=== PATIENT | female | born 1975 | race Caucasian/White ===

== ENCOUNTER 2017-03-01 19:12 | Emergency (ER) | payer SELFPAY ==
[2017-03-01 19:33] VITALS: BP 123/83
[2017-03-01] MEDS ORDERED: Amoxicillin/Clavulanate TAB* 875 MG PO ONE (19:34)
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
== END 2017-03-01 20:00 | disposition home or self-care (01) ==
LOC: UCEAST 19:12
DX: K04.7 Periapical abscess without sinus (principal); K03.81 Cracked tooth
CPT/HCPCS: 99212; A9270-GY; G0463

== ENCOUNTER 2017-03-03 08:47 | Emergency (ER) | payer SELFPAY ==
[2017-03-03 09:28] VITALS: BP 123/78
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
== END 2017-03-03 10:00 | disposition home or self-care (01) ==
LOC: UCEAST 08:47
DX: K04.7 Periapical abscess without sinus (principal)
CPT/HCPCS: 99212; G0463

== ENCOUNTER 2017-07-22 20:45 | Emergency (ER) | payer SELFPAY ==
[2017-07-22 21:04] VITALS: BP 87/53
[2017-07-22] MEDS ORDERED: Ondansetron ODT TAB* 4 MG PO ONE (21:09)
[2017-07-22] MEDS ORDERED: NS 0.9% 1000 ML* 1,000 ML IV SCH (21:15)
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
[2017-07-22] MEDS ORDERED: Acetaminophen TAB* 325 MG PO ONE (23:09)
--- NOTE | 2017-07-24 15:50 | UC ---
Progress - Progress Note Progress Note: CALL PATIENT UCX (-). IF WORSE ER. Re-Evaluation - Re-Evaluation First Eval Re-Evaluation Time: 23:09 - BETTER AFTER 1L NS AND 4MG ZOFRAN Change: Improved
== END 2017-07-22 23:37 | disposition home or self-care (01) ==
LOC: UCEAST 20:45
DX: O21.0 Mild hyperemesis gravidarum (principal); Z3A.09 9 weeks gestation of pregnancy; Z88.8 Allergy status to other drugs, medicaments and biological substances; Z88.5 Allergy status to narcotic agent
CPT/HCPCS: 81003; 87086; 96360; 99212; A9270-GY; G0463

== ENCOUNTER 2017-11-16 14:15 | Emergency (ER) | payer MEDICAID ==
[2017-11-16 14:36] VITALS: BP 108/63
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
== END 2017-11-16 16:30 | disposition home or self-care (01) ==
LOC: UCEAST 14:15
DX: J32.9 Chronic sinusitis, unspecified (principal); Z88.8 Allergy status to other drugs, medicaments and biological substances
CPT/HCPCS: 87502; 99212; G0463

== ENCOUNTER 2018-04-07 17:17 | Emergency (ER) | payer OTHER ==
[2018-04-07] MEDS ORDERED: NS 0.9% 1000 ML* 1,000 ML IV ONE (18:07)
[2018-04-07] MEDS ORDERED: diPHENhydraMINE IV* 50 MG/ML 1 ml VIAL (BENADRYL) IV ONE (18:07)
[2018-04-07] MEDS ORDERED: Ketorolac INJ* 30 MG/ML 1 ML VIAL IV ONE (18:07)
[2018-04-07] MEDS ORDERED: Metoclopramide IV* 5 MG/ML 2 ML VIAL IV ONE (18:07)
[2018-04-07 18:47] LABS: ABS Basophils 0 10^3/ul (0-0.2); ABS Eosinophils 0 10^3/ul (0-0.6); ABS Lymphocytes 0.9 10^3/ul (1.0-4.8); ABS Monocytes 0.2 10^3/ul (0-0.8); ABS Neutrophils 4.9 10^3/ul (1.5-7.7); ABS Nucleated RBC 0 10^3/ul; Eosinophil % 0.5 % (0-6); Hematocrit 38 % (35-47); Hemoglobin 13.1 g/dl (12.0-16.0); Lymphocyte % 15.4 % (25-47); Mean Corpuscular HGB Conc 35 g/dl (31-36); Mean Corpuscular Hemoglobin 34 pg (27-31); Mean Corpuscular Volume 99 fL (80-97); Mean Platelet Volume 7.5 um3 (7.4-10.4); Nucleated Red Blood Cells % 0.1; Platelet Count 203 10^3/ul (150-450); Red Blood Count 3.86 10^6/ul (4.00-5.40); Red Cell Distribution Width 12 % (10.5-15); White Blood Count 6.1 10^3/ul (3.5-10.8)
[2018-04-07 19:11] LABS: EGFR Non-African American 80.6 (>60)
[2018-04-07 19:28] VITALS: BP 122/79
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
== END 2018-04-07 19:28 | disposition home or self-care (01) ==
LOC: ED 17:17
DX: R51 Headache (principal); Z88.8 Allergy status to other drugs, medicaments and biological substances
CPT/HCPCS: 36415; 80053; 82375; 85025; 85652; 96374; 96375; 99282; J1200; J1885; J2765

== ENCOUNTER 2018-05-03 10:35 | Emergency (ER) | payer OTHER ==
[2018-05-03] MEDS ORDERED: NS 0.9% 1000 ML* 2,000 ML IV ONE ×2 (11:14→11:15)
[2018-05-03] MEDS ORDERED: Ondansetron INJ* 2 MG/ML VIAL IV ONE ×2 (11:15→14:35)
[2018-05-03] MEDS ORDERED: Ketorolac INJ* 30 MG/ML 1 ML VIAL IV ONE ×2 (11:15→14:35)
[2018-05-03 11:48] LABS: ABS Basophils 0 10^3/ul (0-0.2); ABS Eosinophils 0.1 10^3/ul (0-0.6); ABS Lymphocytes 0.9 10^3/ul (1.0-4.8); ABS Monocytes 0.3 10^3/ul (0-0.8); ABS Neutrophils 3.7 10^3/ul (1.5-7.7); ABS Nucleated RBC 0 10^3/ul; Eosinophil % 1.8 % (0-6); Hematocrit 41 % (35-47); Hemoglobin 14.1 g/dl (12.0-16.0); Lymphocyte % 18.6 % (25-47); Mean Corpuscular HGB Conc 35 g/dl (31-36); Mean Corpuscular Hemoglobin 34 pg (27-31); Mean Corpuscular Volume 99 fL (80-97); Mean Platelet Volume 7.3 um3 (7.4-10.4); Nucleated Red Blood Cells % 0; Platelet Count 245 10^3/ul (150-450); Red Blood Count 4.12 10^6/ul (4.00-5.40); Red Cell Distribution Width 12 % (10.5-15)
[2018-05-03 11:56] LABS: INR 0.95 (0.77-1.02)
[2018-05-03 11:58] LABS: Urine Appearance Clear; Urine Blood Negative (Negative); Urine Color Yellow; Urine Ketones Negative (Negative); Urine Protein Negative (Negative); Urine Specific Gravity 1.012 (1.010-1.030); Urine Urobilinogen Negative (Negative)
--- NOTE | 2018-05-03 12:05 | RAD ---
INDICATION: Headache. COMPARISON: Comparison is made with a prior CT of the brain from May 10, 2016. TECHNIQUE: Contiguous axial sections of the brain were obtained from the skull base to the vertex without contrast. FINDINGS: The ventricles, cisterns and sulci are within normal limits. There is a focal area of decreased density on the anterior aspect of the right inferior temporal lobe which is unchanged most consistent with either an area of encephalomalacia or an arachnoid cyst. No other focal abnormalities or mass effect is seen. There is no evidence for hemorrhage. There is an tammy hole in the right frontal bone and the patient appears to be status post craniotomy in the left frontal temporal and parietal bones. There are several metallic plates present. The visualized portion of the paranasal sinuses and mastoid air cells appear clear. IMPRESSION: NO EVIDENCE FOR ACUTE INTRACRANIAL ABNORMALITY.
[2018-05-03 12:07] LABS: EGFR Non-African American 86.9 (>60)
--- NOTE | 2018-05-03 13:05 | RAD ---
INDICATION: Pelvic pain assess IUD position. COMPARISON: There are no prior studies available for comparison. TECHNIQUE: Multiple real-time transabdominal images of the pelvis were obtained. FINDINGS: The uterus is normal in size, shape and echogenicity. The uterus measured 8.4 x 3.2 x 3.9 cm. The endometrial echo measured 0.3 cm in thickness. There is an IUD present which appears to be in normal position. The right ovary measured 2.4 x 1.3 x 2.5 cm. The left ovary measured 2.5 x 1.5 x 1.8 cm. There is vascular flow within both ovaries. No free intraperitoneal fluid is seen. IMPRESSION: NO EVIDENCE FOR ACUTE FINDING.
[2018-05-03] MEDS ORDERED: Butalb/Acetamin/Caff TAB* 1 TAB PO ONE (14:49)
[2018-05-03 15:02] VITALS: BP 111/71
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
== END 2018-05-03 15:09 | disposition home or self-care (01) ==
LOC: ED 10:35
DX: R51 Headache (principal); R11.2 Nausea with vomiting, unspecified; R10.2 Pelvic and perineal pain; M54.9 Dorsalgia, unspecified; J02.9 Acute pharyngitis, unspecified; R19.7 Diarrhea, unspecified; E87.6 Hypokalemia
CPT/HCPCS: 36415; 70450; 76856; 80053; 81003; 83605; 83690; 84702; 85025; 85610; 85730; 86140; 87480; 87491; 87510; 87591; 87661; 96374; 96375; 99283; A9270-GY; J1885; J2405

== ENCOUNTER 2018-08-31 17:46 | Emergency (ER) | payer OTHER ==
[2018-08-31] MEDS ORDERED: NS 0.9% 1000 ML* 1,000 ML IV ONE (18:57)
[2018-08-31] MEDS ORDERED: Ondansetron INJ* 2 MG/ML VIAL IV ONE (19:14)
[2018-08-31 19:15] LABS: ABS Basophils 0 10^3/ul (0-0.2); ABS Eosinophils 0 10^3/ul (0-0.6); ABS Lymphocytes 1.3 10^3/ul (1.0-4.8); ABS Monocytes 0.3 10^3/ul (0-0.8); ABS Nucleated RBC 0 10^3/ul; Eosinophil % 0.5 % (0-6); Hematocrit 41 % (35-47); Mean Corpuscular HGB Conc 34 g/dl (31-36); Mean Corpuscular Hemoglobin 35 pg (27-31); Mean Corpuscular Volume 103 fL (80-97); Mean Platelet Volume 7.7 fL (7.4-10.4); Nucleated Red Blood Cells % 0.2; Platelet Count 213 10^3/ul (150-450); Red Blood Count 3.97 10^6/ul (4.00-5.40); Red Cell Distribution Width 12 % (10.5-15); White Blood Count 4.6 10^3/ul (3.5-10.8)
[2018-08-31] MEDS ORDERED: Iohexol 300* (CONTRAST) 10 ML SDV IV ONE (20:24)
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
[2018-08-31] MEDS ORDERED: Ibuprofen TAB* 600 MG PO ONE (23:47)
[2018-08-31] MEDS ORDERED: Dicyclomine CAP* 10 MG PO ONE (23:48)
[2018-08-31] MEDS ORDERED: Ondansetron ODT TAB* 4 MG PO ONE (23:52)
[2018-09-01 00:28] VITALS: BP 122/74
== END 2018-09-01 00:27 | disposition home or self-care (01) ==
LOC: ED 17:46
DX: R10.32 Left lower quadrant pain (principal); R11.0 Nausea; R19.7 Diarrhea, unspecified
CPT/HCPCS: 36415; 74177; 76705; 76830; 80053; 83605; 83690; 84702; 85025; 86140; 96374; 99284; A9270-GY; J2405; Q9967

== ENCOUNTER 2018-09-29 10:15 | Emergency (ER) | payer OTHER ==
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
[2018-09-29 12:09] VITALS: BP 139/83
== END 2018-09-29 12:08 | disposition home or self-care (01) ==
LOC: ED 10:15
DX: F41.9 Anxiety disorder, unspecified (principal)
CPT/HCPCS: 99282

== ENCOUNTER 2019-02-06 12:25 | Emergency (ER) | payer OTHER ==
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
[2019-02-06 12:39] VITALS: BP 127/78
== END 2019-02-06 13:32 | disposition home or self-care (01) ==
LOC: UCEAST 12:25
DX: J01.90 Acute sinusitis, unspecified (principal); R09.82 Postnasal drip; R05 Cough; R07.89 Other chest pain; Z88.8 Allergy status to other drugs, medicaments and biological substances
CPT/HCPCS: 71046; 93005; 99212; G0463

== ENCOUNTER 2019-07-29 12:53 | Emergency (ER) | payer OTHER ==
[2019-07-29 15:19] LABS: ABS Eosinophils 0.1 10^3/ul (0-0.6); ABS Lymphocytes 0.7 10^3/ul (1.0-4.8); ABS Monocytes 0.3 10^3/ul (0-0.8); ABS Neutrophils 8.7 10^3/ul (1.5-7.7); Eosinophil % 0.6 %; Hematocrit 40 % (35-47); Hemoglobin 14.1 g/dL (12.0-16.0); Lymphocyte % 6.9 %; Mean Corpuscular HGB Conc 35 g/dL (31-36); Mean Corpuscular Hemoglobin 36 pg (27-31); Mean Corpuscular Volume 102 fL (80-97); Mean Platelet Volume 7.9 fL (7.4-10.4); Nucleated Red Blood Cells % 0.2; Platelet Count 214 10^3/uL (150-450); Red Blood Count 3.97 10^6 /uL (3.70-4.87); Red Cell Distribution Width 12 % (10-15); White Blood Count 9.8 10^3/uL (3.5-10.8)
[2019-07-29 15:42] LABS: ALT 14 U/L (7-52); AST 13 U/L (13-39); Albumin 4.2 g/dL (3.2-5.2); Albumin/Globulin Ratio 1.6 (1-3); Alkaline Phosphatase 63 U/L (34-104); Anion Gap 7 mmol/L (2-11); BUN/Creatinine Ratio 9.6 (8-20); Blood Urea Nitrogen 8 mg/dL (6-24); C Reactive Protein 13.39 mg/L (<8.01); CO2 Carbon Dioxide 26 mmol/L (22-32); Calcium 9.2 mg/dL (8.6-10.3); Chloride 105 mmol/L (101-111); EGFR African American 91.2 (>60); EGFR Non-African American 75.4 (>60); Globulin 2.6 g/dL (2-4); Glucose 84 mg/dL (70-100); Potassium 3.8 mmol/L (3.5-5.0); Sodium 138 mmol/L (135-145); Total Protein 6.8 g/dL (6.4-8.9)
[2019-07-29] MEDS ORDERED: Iohexol 300* (CONTRAST) 10 ML SDV IV ONE (18:59)
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
--- NOTE | 2019-07-29 19:30 | ED ---
Progress - Progress Note Progress Note: This pt is a sign out to Dr. Banks from Dr. Salazar at shift change 1900 pending a Brain and Neck CT and disposition. - Results/Orders Results/Orders: Her Neck CT shows no acute abnormalities. ED physician has reviewed this report. Her Brain CT shows no acute abnormalities. ED physician has reviewed this report. Course/Dx - Course Course Of Treatment: This pt is a sign out to Dr. Banks from Dr. Salazar at shift change 1900 07/29/19 pending a Brain and Neck CT and disposition. Her Neck CT shows no acute abnormalities. ED physician has reviewed this report. Her Brain CT shows no acute abnormalities. ED physician has reviewed this report. She will be given nausea medications. If she reports feeling better she will be discharged home. - Diagnoses Provider Diagnoses: Nausea & vomiting Discharge ED - Sign-Out/Discharge Documenting (check all that apply): Patient Departure - discharge - Discharge Plan Condition: Good Disposition: HOME Prescriptions: Metoclopramide TAB* [Reglan TAB*] 10 mg PO Q6H PRN #30 tab PRN Reason: Nausea Patient Education Materials: Acute Nausea and Vomiting (ED) Referrals: Lisa Lord DISC PAD PLATE FILLER [Primary Care Provider] - - Billing Disposition and Condition Condition: GOOD Disposition: Home - Attestation Statements Document Initiated by Soto: Yes Documenting Scribe: Clark Balderrama Provider For Whom Soto is Documenting (Include Credential): Win Banks MD Scribe Attestation: Clark Rosenbaum, scribed for Win Banks MD on 07/30/19 at 0624. Scribe Documentation Reviewed: Yes Provider Attestation: The documentation as recorded by the Clark smith accurately reflects the service I personally performed and the decisions made by , Win Banks MD Status of Scribe Document: Viewed Procedures - Sedation Patient Received Moderate/Deep Sedation with Procedure: No
[2019-07-29] MEDS ORDERED: NS 0.9% 1000 ML** 1,000 ML IV ONE (19:48)
[2019-07-29] MEDS ORDERED: Metoclopramide IV* 5 MG/ML 2 ML VIAL IV SLOW PU ONE (19:49)
[2019-07-29 21:38] LABS: Urine Appearance Clear; Urine Bilirubin Negative (Negative); Urine Blood Negative (Negative); Urine Color Yellow; Urine Glucose Negative (Negative); Urine Ketones Negative (Negative); Urine Nitrite Negative (Negative); Urine Protein Negative (Negative); Urine Specific Gravity 1.044 (1.010-1.030); Urine Urobilinogen Negative (Negative)
[2019-07-29 21:48] VITALS: BP 114/72
== END 2019-07-29 22:10 | disposition home or self-care (01) ==
LOC: ED 12:53
DX: R11.2 Nausea with vomiting, unspecified (principal); Z88.8 Allergy status to other drugs, medicaments and biological substances; Z79.899 Other long term (current) drug therapy
CPT/HCPCS: 36415; 70450; 70491; 80053; 81003; 83605; 83690; 85025; 86140; 96361; 96374; 99283; J2765; Q9967

== ENCOUNTER 2019-10-22 16:31 | Emergency (ER) | payer OTHER ==
--- OUTSIDE RECORDS SUMMARY | 2019-10-22 16:37 | XMS REPORT | Summary of Care ---
:1975 Author Organization [facility] Address [address] [facility] [place] [address] Care Team Providers Name Role Phone Lisa Lord CHELSEY Primary Care Provider Reason for Referral MRI/CAT/PET Scan (Routine) Status Reason Specialty Diagnoses / Referred By Referred To Procedures Contact Contact Pending Review Diagnoses Gastritis and gastroduodenitis Nausea Edenilson, Procedures NM GASTRIC EMPTYING STUDY Rosaline Oneill NP [address] [place] [address] Reason for Visit Reason Comments Follow-up Follow-up to recent upper endoscopy at [facility]. Encounter Details Date Type Department Care Team Description 08/30/2019 Office Visit Dane Pyle, Gastritis and gastroduodenitis ( Primary Dx); Gastroenterology/He Rosaline Oneill NP Nausea patology 1 [facility] [address] [facility] [place] [address] [place] [address] [phone] Allergies Active Allergy Reactions Severity Noted Date Comments Dilantin Other High 07/03/2018 Swelling documented as of this encounter (statuses as of 08/30/2019) Medications Medication Sig Dispensed Refills Start Date End Date Status Gabapentin 600 MG Take by 0 Active Oral Tab mouth TWICE DAILY. tramadol (ULTRAM) 50 Take 50 mg 0 Active MG Oral Tab by mouth EVERY SIX HOURS NEEDED for Pain. diazepam (VALIUM) 5 Take 15-25 0 Active MG Oral Tab mg by mouth DAILY. venlafaxine (EFFEXOR Take 75 mg 0 Active XR) 75 MG Oral by mouth CAPSULE SR 24 HR DAILY. metoclopramide Take 1 Tab 120 Tab 0 08/16/2019 Active (REGLAN) 5 MG Oral by mouth 9 Tab FOUR TIMES DAILY for 30 days. trazodone (DESYREL) Take 100 mg 0 Active 100 MG Oral Tab by mouth EVERY BEDTIME. venlafaxine (EFFEXOR Take 37.5 0 Active XR) 37.5 MG Oral mg by mouth CAPSULE SR 24 HR DAILY. esomeprazole Take 40 mg 30 Cap 2 08/30/2019 Active magnesium (NEXIUM) by mouth 40 MG Oral CAPSULE DAILY. DELAYED RELEASE pantoprazole Take 40 mg 0 Discontinued (PROTONIX) 40 MG by mouth 9 (Alternative Oral Tab EC DAILY. Therapy) trazodone (DESYREL) Take 50 mg 0 Discontinued 50 MG Oral Tab by mouth 9 EVERY BEDTIME. documented as of this encounter (statuses as of 08/30/2019) Active Problems Problem Noted Date Closed nondisplaced fracture of neck of fifth metacarpal bone of right 2017 hand documented as of this encounter (statuses as of 08/30/2019) Social History Tobacco Use Types Packs/Day Years Used Date Former Smoker 0 Smokeless Tobacco: Never Used Alcohol Use Drinks/Week oz/Week Comments No Sex Assigned at Date Recorded Not on file Job Start Date Occupation Industry Not on file Not on file Not on file Travel History Travel Start Travel End No recent travel history available. documented as of this encounter Last Filed Vital Signs Vital Sign Reading Time Taken Comments Blood Pressure 98/60 08/30/2019 7:41 AM EST Pulse 66 08/30/2019 7:41 AM EST Temperature 36.4 08/30/2019 7:41 AM EST C (97.6 F) Respiratory Rate - - Oxygen Saturation - - Inhaled Oxygen Concentration - - Weight 70.3 kg (155 lb) 08/30/2019 7:41 AM EST Height 157.5 cm (5' 2") 08/30/2019 7:41 AM EST Body Mass Index 28.35 08/30/2019 7:41 AM EST documented in this encounter Patient Instructions Patient InstructionsRosaline Pyle NP - 08/30/2019 7:40 AM ESTWill continue a proton pump inhibitor for 2 -3 months total Will plan for a gastric emptying study will need to be authorized, once this is approved by your insurance we will call you to schedule this at [facility] Follow up after the above See dietary changes below Diet for Stomach Gastritis COMPUTER SYSTEMS INTEGRATOR: A diet for stomach gastritis is a meal plan that limits foods that irritate your stomach. Certain foods may worsen symptoms such as stomach pain, bloating, heartburn, or indigestion. Foods to limit or avoid: You may need to avoid acidic, spicy, or high-fat foods. Not all foods affect everyone the same way. You will need to learn which foods worsen your symptoms and limit those foods. The following are some foods that may worsen ulcer or gastritis symptoms: Beverages: Whole milk and chocolate milk Hot cocoa and cola Any beverage with caffeine Regular and decaffeinated coffee Peppermint and spearmint tea Green and black tea, with or without caffeine [place] and grapefruit juices Drinks that contain alcohol Spices and seasonings: Black and red pepper Harrold powder Mustard seed and nutmeg Other foods: Dairy foods made from whole milk or cream Chocolate Spicy or strongly flavored cheeses, such as jalapeno or black pepper Highly seasoned, high-fat meats, such as sausage, salami, tejada, ham, and cold cuts Hot chiles and peppers Tomato products, such as tomato paste, tomato sauce, or tomato juice Foods to include: Eat a variety of healthy foods from all the food groups. Eat fruits, vegetables, whole grains, and fat-free or low-fat dairy foods. Whole grains include whole-wheat breads, cereals, pasta, and brown rice. Choose lean meats, poultry (chicken and turkey), fish, beans, eggs, and nuts. A healthy meal plan is low in unhealthy fats, salt, and added sugar. Healthy fats include olive oil and canola oil. Ask your dietitian for more information about a healthy diet. Other helpful guidelines: Do not eat right before bedtime. Stop eating at least 2 hours before bedtime. Eat small, frequent meals. Your stomach may tolerate small, frequent meals better than large meals. 2016 [employer]. Information is for End User's use only and may not be sold, redistributed or otherwise used for commercial purposes. All illustrations and images included in CareNotes are the copyrighted property of [employer], [employer] or [employer]. The above information is an health aide only. It is not intended as medical advice for individual conditions or treatments. Talk to your doctor, nurse or pharmacist before following any medical regimen to see if it is safe and effective for you. documented in this encounter Progress Notes Rosaline Pyle NP - 08/30/2019 7:40 AM EST PATIENT: Samia Corea : 1975 DATE OF SERVICE: 08/30/2019 REFERRING PRACTITIONER: Lisa Lord PRIMARY CARE PROVIDER: Lisa Lord CHIEF COMPLAINT: Chief Complaint Patient presents with Follow-up Follow-up to recent upper endoscopy at [facility]. Subjective HISTORY OF PRESENT ILLNESS: Samia Corea is a 44-y.o. female who presents for follow-up of recent EGD which was positive forgastritis, clotest negative. She reports no relief from one month of PPI and recent trial of Reglan for nausea She admittedly is under immense stress related to the care of her disabled daughter. Continues to "dry heave" most mornings. She denies dysphagia, melena, hematemesis, hematochezia, constipation, diarrhea , jaundice, fevers, chills, night sweats, weight loss, easy bruising, chest pain , shortness of breath, dysuria, hematuria,pyuria, joint pains, acholic stools, dark urine or systemic pruritis. Current Outpatient Medications Medication Sig diazepam (VALIUM) 5 MG Oral Tab Take 15-25 mg by mouth DAILY. esomeprazole magnesium (NEXIUM) 40 MG Oral CAPSULE DELAYED RELEASE Take 40 mg by mouth DAILY. Gabapentin 600 MG Oral Tab Take by mouth TWICE DAILY. metoclopramide (REGLAN) 5 MG Oral Tab Take 1 Tab by mouth FOUR TIMES DAILY for 30 days. tramadol (ULTRAM) 50 MG Oral Tab Take 50 mg by mouth EVERY SIX HOURS NEEDED for Pain. trazodone (DESYREL) 100 MG Oral Tab Take 100 mg by mouth EVERY BEDTIME. venlafaxine (EFFEXOR XR) 37.5 MG Oral CAPSULE SR 24 HR Take 37.5 mg by mouth DAILY. venlafaxine (EFFEXOR XR) 75 MG Oral CAPSULE SR 24 HR Take 75 mg by mouth DAILY. No current facility-administered medications for this visit. Allergies Allergen Reactions Dilantin Other Swelling REVIEW OF SYSTEMS: All remaining review of systems was negative except for as noted in the history of present illness/subjective. Objective PHYSICAL EXAMINATION: VITALS: BP 98/60 | Pulse 66 | Temp 97.6 F (36.4 C) | Ht 5' 2" ( 1.575 m) | Wt 155 lb (70.3 kg) | BMI 28.35 kg/m Body mass index is 28.35 kg/m. GENERAL: alert, oriented, no acute distress. HEENT: No scleral icterus, MMM Psych: Affect normal Neck: no lymphadenopathy LUNGS: clear to auscultation bilaterally. HEART: regular rhythm, no murmurs, no gallops, no rubs. ABDOMEN: general exam: soft, non-tender, non-distended, without masses or organomegaly, normal active bowel sounds, Perez's sign negative. Extrmities: no edema Skin: clear Neuro: gait normal, a&o x 3 RECTAL: exam deferred. IMPRESSION: ICD-9-CM ICD-10-CM 1. Gastritis and gastroduodenitis 535.50 K29.70 NM GASTRIC EMPTYING STUDY K29.90 2. Nausea 787.02 R11.0 NM GASTRIC EMPTYING STUDY Plan PLAN: Patient Instructions Will continue a proton pump inhibitor for 2 -3 months total Will plan for a gastric emptying study will need to be authorized, once this is approved by your insurance we will call you to schedule this at [facility] Follow up after the above See dietary changes below Diet for Stomach Gastritis COMPUTER SYSTEMS INTEGRATOR: A diet for stomach gastritis is a meal plan that limits foods that irritate your stomach. Certain foods may worsen symptoms such as stomach pain, bloating, heartburn, or indigestion. Foods to limit or avoid: You may need to avoid acidic, spicy, or high-fat foods. Not all foods affect everyone the same way. You will need to learn which foods worsen your symptoms and limit those foods. The following are some foods that may worsen ulcer or gastritis symptoms: Beverages: Whole milk and chocolate milk Hot cocoa and cola Any beverage with caffeine Regular and decaffeinated coffee Peppermint and spearmint tea Green and black tea, with or without caffeine [place] and grapefruit juices Drinks that contain alcohol Spices and seasonings: Black and red pepper Harrold powder Mustard seed and nutmeg Other foods: Dairy foods made from whole milk or cream Chocolate Spicy or strongly flavored cheeses, such as jalapeno or black pepper Highly seasoned, high-fat meats, such as sausage, salami, tejada, ham, and cold cuts Hot chiles and peppers Tomato products, such as tomato paste, tomato sauce, or tomato juice Foods to include: Eat a variety of healthy foods from all the food groups. Eat fruits, vegetables, whole grains, and fat-free or low-fat dairy foods. Whole grains include whole-wheat breads, cereals, pasta, and brown rice. Choose lean meats, poultry (chicken and turkey), fish, beans, eggs, and nuts. A healthy meal plan is low in unhealthy fats, salt, and added sugar. Healthy fats include olive oil and canola oil. Ask your dietitian for more information about a healthy diet. Other helpful guidelines: Do not eat right before bedtime. Stop eating at least 2 hours before bedtime. Eat small, frequent meals. Your stomach may tolerate small, frequent meals better than large meals. 2016 [employer]. Information is for End User's use only and may not be sold, redistributed or otherwise used for commercial purposes. All illustrations and images included in CareNotes are the copyrighted property of [employer], [employer] or [employer]. The above information is an health aide only. It is not intended as medical advice for individual conditions or treatments. Talk to your doctor, nurse or pharmacist before following any medical regimen to see if it is safe and effective for you. Author: Rosaline Pyle NP 08/30/2019 08:31 documented in this encounter Plan of Treatment Name Type Priority Associated Diagnoses Order Schedule NM GASTRIC EMPTYING Imaging Routine Gastritis and Expected: 08/30/2019, STUDY gastroduodenitis Expires: 08/29/2020 Nausea Health Maintenance Due Date Last Done Comments PAP SMEAR 1975 DEPRESSION SCREENING 1989 HIV SCREENING 1992 DIABETES SCREENING 1995 LIPID DISORDER SCREENING 1995 MAMMOGRAM (SCREENING) 2017 INFLUENZA VACCINE (#1) 2019 HPV IMMUNIZATION SERIES Aged Out No longer eligible based on patient's age to complete this topic MENINGOCOCCAL VACCINE IMM Aged Out No longer eligible based on patient's age to complete this topic PNEUMOCOCCAL 0-64 YRS Aged Out No longer eligible based on patient's age to complete this topic documented as of this encounter Results Not on filedocumented in this encounter Visit Diagnoses Diagnosis Gastritis and gastroduodenitis - Primary Unspecified gastritis and gastroduodenitis without mention of hemorrhage Nausea Nausea alone documented in this encounter documented as of this encounter
--- OUTSIDE RECORDS SUMMARY | 2019-10-22 16:37 | XMS REPORT | Continuity of Care Document ---
:1975 External Reference #:[id number] Author Name Remi Parikh DO Address [address] [place] [id number] Care Team Providers Name Role Phone Rosaline Pyle NP Care Team Information Field Services Analyst [phone] Problems Active Problems Provider Date Constipation Macey Hammond PA-C Onset: 08/19/2019 Diarrhea Macey Hammond PA-C Onset: 08/19/2019 Gastroesophageal reflux disease Macey Hammond PA-C Onset: 08/19/2019 Left upper quadrant pain Macey Hammond PA-C Onset: 08/19/2019 Epigastric pain Macey Hammond PA-C Onset: 08/19/2019 Nausea Macey Hammond PA-C Onset: 08/19/2019 Social History Type Date Description Comments Sex Unknown Tobacco Use Start: Unknown Patient has never smoked Smoking Status Reviewed: 08/19/19 Patient has never smoked Allergies, Adverse Reactions, Alerts Active Allergies Reaction Severity Comments Date Dilantin 08/19/2019 Medications Active Medications SIG Qnty Indications Ordering Provider Date Metoclopramide HCL Hodan Pyle 5mg ca,LICENSED MORTGAGE LOAN OFFICER Tablets Venlafaxine HCL ER Unknown 75mg Caps ER 24HR Ondansetron HCL Take 1 Tablet By Unknown 4mg Tablets Mouth Every 8 Hours as Needed For Nausea And Vomiting Gabapentin Take 2 Tablets By Unknown 600mg Tablets Mouth Every Day AT Bedtime For 30 Days Pantoprazole Sodium Take 1 Tablet By Unknown 40mg Mouth Every Day Tablets DR Diazepam Take 1 Tab 5 Unknown 5mg Tablets Times A Day Immunizations Description No Information Available Vital Signs Date Vital Result Comment 08/19/2019 2:17pm Height 62 inches 5'2" Weight 156.00 lb BP Systolic 117 mmHg BP Diastolic 73 mmHg Heart Rate 80 /min BMI (Body Mass Index) 28.5 kg/m2 Results Test Acquired Date Facility Test Result H/L Range Note Laboratory test 08/25/2019 [facility] Clotest SEE RESULT 1, 2 finding BELOW Laboratory test 08/25/2019 [facility] Surgical SEE RESULT 3 finding Pathology Order BELOW 1 [id number] SEE RESULT BELOW Name: SAMIA COREA : [address]: Remi Parikh DO Acct: [id number] Unit: [id number] AGE: 44 Location: [facility] Re08/25/19 SEX: F Status: DEP REF SPEC: [id number] CHER: 08/25/[address] [facility] [address]: Remi Parikh DO REQ: [id number] RECD: 08/25/19 STATUS: GLADYS STRAUSS DR: Lisa BACA C _ SOURCE: GAS ANTRUM SPDESC: ORDERED: Clotest COMMENTS: [id number] Procedure Result Reported Site Clotest Final 08/26/19- 803 ML Clotest Negative * ML - Main Lab . END OF REPORT DEPARTMENT OF PATHOLOGY, [address] [place] [address] Paresh Bennett M.D. Director [facility] # [id number] 3 SEE RESULT BELOW Name: SAMIA COREA : [address]: Remi Parikh DO Acct: [id number] Unit: [id number] AGE: 44 Location: [facility] Re08/25/19 SEX: F Status: DEP REF SPEC: [id number] CHER: 08/25/[address] [facility] [address]: Remi Parikh DO REQ: [id number] RECD: 08/25/19 STATUS: WILLIAN STRAUSS DR: Lisa BACA C _ ORDERED: LEVEL 4/2 FINAL DIAGNOSIS 1. Small bowel, duodenum, biopsy: -- Small bowel mucosa with normal villous architecture and no significant pathologic abnormality. -- No villous blunting or increased lamina propria lymphoplasmacytic infiltrate is identified. 2. Distal esophagus, biopsy: -- Gastroesophageal transition zone mucosa with mild nonspecific reactive glandular and squamous epithelial changes. -- No specific features of reflux esophagitis identified. -- No goblet cell/intestinal metaplasia or dysplasia identified. CLINICAL HISTORY Abdominal pain; nausea POST-OPERATIVE DIAGNOSIS EGD: esophagus - normal; biopsy to rule out reflux; gastric - gastritis with antral erosions; biopsy; duodenum - normal; biopsy CONTINUED ON NEXT PAGE DEPARTMENT OF PATHOLOGY, [facility] [address] [place] [address] Paresh Bennett M.D. Director [facility] # [id number] GROSS DESCRIPTION 1. The specimen is received in formalin labeled, Biopsy Duodenum, and consists of two groves-pink irregular soft tissue fragments measuring 0.3 x 0.3 by up to 0.2 cm and 0.5 x 0.3 x 0.1 cm which are submitted entirely in one cassette. 2. The specimen is received in formalin labeled, Biopsy Distal Esophagus, and consists of a 0.6 x 0.2 x 0.1 cm white-pink irregular soft tissue fragment which is submitted entirely in one cassette. Signed by and Reported on: Paresh Bennett MD 1421 END OF REPORT DEPARTMENT OF PATHOLOGY, [facility] [address] [place] [address] Paresh Bennett M.D. Director [facility] # [id number] Procedures Description No Information Available Medical Devices Description No Information Available Encounters Description No Information Available Assessments Date Code Description Provider 08/19/2019 R11.0 Nausea Macey Hammond PA-C 08/19/2019 R10.13 Epigastric pain Macey Hammond PA-C 08/19/2019 R10.12 Left upper quadrant pain Macey Hammond PA-C 08/19/2019 K21.9 Gastro-esophageal reflux disease without Macey Hammond PA-C esophagitis 08/19/2019 R19.7 Diarrhea, unspecified DIANNE MistryC 08/19/2019 K59.00 Constipation, unspecified Macey Hammond PA-C Plan of Treatment No Information Available Functional Status Description No Information Available Mental Status Description No Information Available Referrals Description No Information Available
--- OUTSIDE RECORDS SUMMARY | 2019-10-22 16:38 | XMS REPORT | Continuity of Care Document ---
:1975 External Reference #:[id number] Author Name Remi Parikh DO Address [address] [place] [id number] Care Team Providers Name Role Phone Rosaline Pyle NP Care Team Information Pan Pusher [phone] Problems Active Problems Provider Date Constipation Macey [...] Provider Date Metoclopramide HCL Hodan Pyle 5mg ca,TRUCK TRAILER MECHANIC Tablets Venlafaxine HCL ER Unknown 75mg Caps [...] Result H/L Range Note Laboratory test 08/25/2019 [facility] [place] Clotest SEE RESULT 1, 2 finding BELOW Laboratory test 08/25/2019 [facility] Surgical SEE RESULT 3 finding Pathology Order BELOW 1 [id number] SEE RESULT BELOW Name: SAMIA COREA : [address]: Remi Parikh DO Acct: [id number] Unit: [id number] AGE: 44 Location: [facility] Re08/25/19 SEX: F Status: DEP REF SPEC: [id number] CHER: 08/25/[address] [facility] [address]: Remi Parikh DO REQ: [id number] RECD: 08/25/19 STATUS: GLADYS STRAUSS DR: Lisa BACA C _ SOURCE: GAS ANTRUM SPDESC: ORDERED: Clotest COMMENTS: [id number] Procedure Result Reported Site Clotest Final 08/26/19- 803 ML Clotest Negative * ML - Main Lab . END OF REPORT DEPARTMENT OF PATHOLOGY, [address] [place] [address] Paresh Bennett M.D. Director [facility] # [id number] 3 SEE RESULT BELOW Name: SAMIA COREA : [address]: Remi Parikh DO Acct: [id number] Unit: [id number] AGE: 44 Location: [facility] Re08/25/19 SEX: F Status: DEP REF SPEC: [id number] CHER: 08/25/[address] [facility] [address]: Remi Parikh DO REQ: [id number] RECD: 08/25/19 STATUS: WILLIAN STRAUSS DR: Lisa [...] CONTINUED ON NEXT PAGE DEPARTMENT OF PATHOLOGY, [facility] [address] [place] [address] Paresh Bennett M.D. Director [facility] # [id number] GROSS DESCRIPTION 1. The specimen is received [...] 1421 END OF REPORT DEPARTMENT OF PATHOLOGY, [facility] [place] [address] Paresh Bennett M.D. Director [facility] # [id number] Procedures Description No Information Available Medical Devices [...]
[2019-10-22 16:41] VITALS: BP 116/75
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
[2019-10-22 17:32] LABS: Influenza A Molecular NEGATIVE (Negative); Influenza B Molecular NEGATIVE (Negative)
== END 2019-10-22 18:23 | disposition home or self-care (01) ==
LOC: UCEAST 16:31
DX: R05 Cough (principal); R06.02 Shortness of breath; R68.83 Chills (without fever); R51 Headache; J02.9 Acute pharyngitis, unspecified; L53.9 Erythematous condition, unspecified; G89.29 Other chronic pain; M79.10 Myalgia, unspecified site; Z88.8 Allergy status to other drugs, medicaments and biological substances; Z79.899 Other long term (current) drug therapy
CPT/HCPCS: 99212; G0463

== ENCOUNTER 2019-11-12 09:38 | Emergency (ER) | payer OTHER ==
--- OUTSIDE RECORDS SUMMARY | 2019-11-12 09:50 | XMS REPORT | Summary of Care ---
:1975 Author Organization [facility] Address [address] [facility] [address] [address] Care Team Providers Name Role Phone Lisa Lord CHELSEY Primary Care Provider Reason for Visit Reason Comments Follow-up Follow-up to recent gastric [place] [facility]. Encounter Details Date Type Department Care Team Description 11/02/2019 Office Visit Sarah Shetty and Gastroenterology/He Rosaline Oneill NP gastroduodenitis (Primary patology 1 [place] [facility]) [address] [facility] [place] [address] [address] [place] [address] [phone] Allergies Active Allergy Reactions Severity Noted Date Comments Dilantin Other High 07/03/2018 Swelling documented as of this encounter (statuses as of 11/02/2019) Medications Medication Sig Dispensed Refills Start Date [...] by mouth CAPSULE SR 24 HR DAILY. venlafaxine (EFFEXOR Take 37.5 0 Active XR) 37.5 MG Oral mg by mouth CAPSULE SR 24 HR DAILY. metoclopramide Take 1 Tab 90 Tab 0 09/16/2019 Active (REGLAN) 5 MG Oral by mouth Tab THREE TIMES DAILY. zolpidem (AMBIEN) 5 Take 5 mg 0 Active MG Oral Tab by mouth EVERY BEDTIME. Omeprazole 40 MG Oral Take 1 Cap 30 Cap 1 11/02/2019 Active CAPSULE DELAYED by mouth RELEASEIndications: DAILY. Gastritis and gastroduodenitis ondansetron (ZOFRAN Take 1 Tab 30 Tab 0 11/02/2019 Active ODT) 4 MG Oral TABLET by mouth DISPERSIBLEIndication EVERY SIX s: Gastritis and HOURS gastroduodenitis NEEDED (nausea). trazodone (DESYREL) Take 100 mg 0 Discontinued 100 MG Oral Tab by mouth 0 EVERY BEDTIME. Omeprazole 40 MG Oral Take 1 Cap 30 Cap 1 09/02/2019 Discontinued CAPSULE DELAYED by mouth 0 (Reorder) RELEASE DAILY. documented as of this encounter (statuses as of 11/02/2019) Active Problems Problem Noted Date Closed nondisplaced fracture of neck of fifth metacarpal bone of right 2017 hand documented as of this encounter (statuses as of 11/02/2019) Social History Tobacco Use Types Packs/Day Years [...] Sign Reading Time Taken Comments Blood Pressure 112/80 11/02/2019 3:19 PM EST Pulse 72 11/02/2019 3:19 PM EST Temperature 36.3 11/02/2019 3:19 PM EST C (97.4 F) Respiratory Rate - - Oxygen Saturation - - Inhaled Oxygen Concentration - - Weight 67.8 kg (149 lb 8 oz) 11/02/2019 3:19 PM EST Height 157.5 cm (5' 2") 11/02/2019 3:19 PM EST Body Mass Index 27.34 11/02/2019 3:19 PM EST documented in this encounter Patient Instructions Patient InstructionsRosaline Pyle NP - 11/02/2019 3:20 PM EST Continue to avoid irritating foods and previously discussed Continue acid reducers if this is helpful. I would highly recommend exercising and using relaxation techniques. These steps help both physically and emotionally. They help regulate digestion and relax muscles, as well as oxygenate the GI systemwhich can help with pain. Thank you for choosing the [facility] for your needs today! -Rosaline Pyle N.P. , Please call if you need to cancel or change your appt. time. Thank you for choosing [facility] for your health care needs, and for consulting with [facility] today. You may receive a survey following this visit, or after an upcoming hospital stay. As easy as it is to feel overloaded with surveys, we are required to send them out randomly and they do provide important feedback so that we may serve your needs in the best way. Please do take the few minutes required to complete the survey if you receive one. We get them too, after seeing the doctor, and they only take a few minutes to complete. Patient Education Gastritis The Basics Written by the doctors and editors at [facility] What is gastritis?"Gastritis" means inflammation of the stomach lining (figure 1). Some people have gastritis that comes on suddenly and lasts only for a short time. Doctors call this"acute" gastritis. Other people have gastritis that lasts for months or years. Doctors call this "chronic" gastritis. What causes gastritis?Different things can cause gastritis, including: An infection in the stomach from bacteria called "H. pylori" Medicines called "nonsteroidal antiinflammatory drugs" (NSAIDs) These include aspirin, ibuprofen (brand names: Advil, Motrin), and naproxen ( brand names: Aleve, Naprosyn). Drinking alcohol Conditions in which the body's infection-fighting system attacks the stomach lining Having a serious or life-threatening illness What are the symptoms of gastritis?People with gastritis have no symptoms. When [place] have symptoms, they are due to other conditions that can happen with gastritis, like ulcers. Symptoms from ulcers include: Pain in the upper belly Feeling bloated, or feeling full after eating a small amount of food Decreased appetite Nausea or vomiting Vomiting blood, or having black-colored bowel movements Feeling more tired than usual This happens if people with gastritis get a condition called "anemia." Should I call my doctor or nurse?Call your doctor or nurse if: You have belly pain that gets worse or doesn't go away You vomit blood or have black bowel movements You are losing weight (without trying to) Will I need tests?Probably. Your doctor or nurse will ask about your symptoms and do an exam. He or she might also do: An upper endoscopy During this procedure, the doctor puts a thin tube with a camera on the end into your mouth and down into your stomach ( figure 2). He or she will look at the inside of your stomach. During the procedure, he or she might also do a test called a biopsy. For a biopsy, the doctor takes a small sample of the stomach lining. Then another doctor looks at the sample under a microscope. Tests to check for H. pylori infection. These can include: ? Blood tests ? Breath tests These tests measure substances in your breath after you drink a special liquid. ? Tests on a small sample of your bowel movement A barium swallow Your doctor will give you a drink called "barium." Then he or she will take an X-ray as the barium moves through your stomach. Blood tests to check for anemia How is gastritis treated?Treatment depends on what's causing your gastritis. For example, if NSAIDs are causing your gastritis, your doctor will recommend that you not take those medicines. If alcohol is causing your gastritis, he or she will recommend that you stop drinking alcohol. Doctors can use medicines to treat gastritis caused by an H. pylori infection. Most people take 3 ormore medicines for 2 weeks. The treatment includes antibiotics plus medicine that helps the stomach make less acid. Doctors can use medicines that reduce or block stomach acid to treat other causes of gastritis (table 1). The main types of medicines that reduce or block stomach acid are: Antacids Surface agents Histamine blockers Proton pump inhibitors If your doctor recommends acid-reducing treatment, he or she will tell you which medicine to use. What happens after treatment?Sometimes, people who are treated for an H. pylori infection need follow-up tests to make sure the infection is gone. Follow-up tests include breath tests, lab tests on a sample of bowel movement, or endoscopy. All topics are updated as new evidence becomes available and our peer review process is complete. This topic retrieved from [employer] on: Aug 31, 2019. Topic 51749 Version 5.0 Release: 27.4.5 - C27.318 [employer]. and/or its affiliates.All rights reserved. figure 1: Upper digestive tract The upper digestive tract includes the esophagus(the tube that connects the mouth to the stomach), the stomach, and the duodenum (the first part of the small intestine). Graphic 02250 Version 6.0 figure 2: Upper endoscopy During an upper endoscopy, you lie down and the doctor puts a thin tube with a camera and light on the end (called an endoscope) into your mouth and down into your esophagus, stomach, and duodenum (thefirst part of your small intestine). The camera sends pictures from inside your body to a televisionscreen. That way , your doctor can see the inside of your esophagus, stomach, and duodenum. Graphic 57284 Version 4.0 table 1: Medicines used to reduce stomach acid Medicine type Medicine name examples Antacids* Calcium carbonate (sample brand names: Maalox, Tums) Aluminum hydroxide, magnesium hydroxide, and simethicone (sample brand name: Mylanta) Surface agents Sucralfate (brand name: Carafate) Histamine blockers Ranitidine (brand name: Zantac) Famotidine (brand name: Pepcid) Cimetidine (brand name: Tagamet) Proton pump inhibitors Omeprazole (brand name: Prilosec) Esomeprazole (brand name: Nexium) Pantoprazole (brand name: Protonix) Lansoprazole (brand name: Prevacid) Dexlansoprazole (brand name: Dexilant) Rabeprazole (brand name: AcipHex) Graphic 96453 Version 12.0 Consumer Information Use and Disclaimer This information is not specific medical advice and does not replace information you receive from your health care provider. This is only a brief summary of general information. It does NOT include allinformation about conditions, illnesses, injuries, tests, procedures, treatments, therapies, discharge instructions or life-style choices that may apply to you. You must talk with your health care provider for complete information about your health and treatment options. This information should not beused to decide whether or not to accept your health care provider's advice, instructions or recommendations. Only your health care provider has the knowledge and training to provide advice that is right for you.The use of [employer] content is governed by the [employer] Terms of Use. 2019 [employer]. All rights reserved. Copyright 2019[employer]. and/or its affiliates.All rights reserved. documented in this encounter Progress Notes Rosaline Pyle NP - 11/02/2019 3:20 PM EST PATIENT: Samia Corea : 1975 DATE OF SERVICE: 11/02/2019 REFERRING PRACTITIONER: Lisa Lord PRIMARY CARE PROVIDER: Lisa Lord CHIEF COMPLAINT: Chief Complaint Patient presents with Follow-up Follow-up to recent gastric emptying study [place] [facility]. Subjective HISTORY OF PRESENT ILLNESS: Samia Corea is a 44-y.o. female who presents for follow-up of GES which was normal. She had hada prior EGD which was positive for gastritis, but H Pylori negative. Minimal relief from PPI and anti emetics. Symptoms have coincided with stress at home, related to the care of her disabled daughter. Denies heartburn, dysphagia, fatigue, melena, hamatemesis, hematochezia, constipation, diarrhea, jaundice, fevers, chills, night sweats, weight loss, easy bruising, chest pain, shortness of breath, dysuria, hematuria, pyuria, joint pains, acholic stools, dark urine or systemic pruritis. Current Outpatient Medications Medication Sig diazepam (VALIUM) 5 MG Oral Tab Take 15-25 mg by mouth DAILY. Gabapentin 600 MG Oral Tab Take by mouth TWICE DAILY. metoclopramide (REGLAN) 5 MG Oral Tab Take 1 Tab by mouth THREE TIMES DAILY. Omeprazole 40 MG Oral CAPSULE DELAYED RELEASE Take 1 Cap by mouth DAILY. ondansetron (ZOFRAN ODT) 4 MG Oral TABLET DISPERSIBLE Take 1 Tab by mouth EVERY SIX HOURS NEEDED (nausea). tramadol (ULTRAM) 50 MG Oral Tab Take 50 mg by mouth EVERY SIX HOURS NEEDED for Pain. venlafaxine (EFFEXOR XR) 37.5 MG Oral CAPSULE SR 24 HR Take 37.5 mg by mouth DAILY. venlafaxine (EFFEXOR XR) 75 MG Oral CAPSULE SR 24 HR Take 75 mg by mouth DAILY. zolpidem (AMBIEN) 5 MG Oral Tab Take 5 mg by mouth EVERY BEDTIME. No current facility-administered medications for this visit. Allergies Allergen Reactions Dilantin Other Swelling REVIEW OF SYSTEMS: All remaining review of systems was negative except for as noted in the history of present illness/subjective. Objective PHYSICAL EXAMINATION: VITALS: BP 112/80 | Pulse 72 | Temp 97.4 F (36.3 C) | Ht 5' 2" ( 1.575 m) | Wt 149 lb 8 oz (67.8 kg) | BMI 27.34 kg/m Body mass index is 27.34 kg/m. GENERAL: alert, oriented, no acute distress. HEENT: No scleral icterus, MMM Psych: Affect normal Neck: no lymphadenopathy LUNGS: clear to auscultation bilaterally. HEART: regular rhythm, no murmurs, no gallops, no rubs. ABDOMEN: general exam: soft, epigastric area tender, non-distended, without masses or organomegaly,normal active bowel sounds, Perez's sign negative. Extrmities: no edema Skin: clear Neuro: gait normal, a&o x 3 RECTAL: exam deferred. IMPRESSION: ICD-9-CM ICD-10-CM 1. Gastritis and gastroduodenitis 535.50 K29.70 Omeprazole 40 MG Oral CAPSULE DELAYED RELEASE K29.90 ondansetron (ZOFRAN ODT) 4 MG Oral TABLET DISPERSIBLE Plan PLAN: Patient Instructions Continue to avoid irritating foods and previously discussed Continue acid reducers if this is helpful. I would highly recommend exercising and using relaxation techniques. These steps help both physically and emotionally. They help regulate digestion and relax muscles, as well as oxygenate the GI systemwhich can help with pain. Thank you for choosing the [facility] for your needs today! -Rosaline Pyle N.P. , Please call if you need to cancel or change your appt. time. Thank you for choosing [facility] for your health care needs, and for consulting with [facility] today. You may receive a survey following this visit, or after an upcoming hospital stay. As easy as it is to feel overloaded with surveys, we are required to send them out randomly and they do provide important feedback so that we may serve your needs in the best way. Please do take the few minutes required to complete the survey if you receive one. We get them too, after seeing the doctor, and they only take a few minutes to complete. Patient Education Gastritis The Basics Written by the doctors and editors at [employer] What is gastritis?"Gastritis" means inflammation of the stomach lining (figure 1). Some people have gastritis that comes on suddenly and lasts only for a short time. Doctors call this"acute" gastritis. Other people have gastritis that lasts for months or years. Doctors call this "chronic" gastritis. What causes gastritis?Different things can cause gastritis, including: An infection in the stomach from bacteria called "H. pylori" Medicines called "nonsteroidal antiinflammatory drugs" (NSAIDs) These include aspirin, ibuprofen (brand names: Advil, Motrin), and naproxen ( brand names: Aleve, Naprosyn). Drinking alcohol Conditions in which the body's infection-fighting system attacks the stomach lining Having a serious or life-threatening illness What are the symptoms of gastritis?People with gastritis have no symptoms. When [place] have symptoms, they are due to other conditions that can happen with gastritis, like ulcers. Symptoms from ulcers include: Pain in the upper belly Feeling bloated, or feeling full after eating a small amount of food Decreased appetite Nausea or vomiting Vomiting blood, or having black-colored bowel movements Feeling more tired than usual This happens if people with gastritis get a condition called "anemia." Should I call my doctor or nurse?Call your doctor or nurse if: You have belly pain that gets worse or doesn't go away You vomit blood or have black bowel movements You are losing weight (without trying to) Will I need tests?Probably. Your doctor or nurse will ask about your symptoms and do an exam. He or she might also do: An upper endoscopy During this procedure, the doctor puts a thin tube with a camera on the end into your mouth and down into your stomach ( figure 2). He or she will look at the inside of your stomach. During the procedure, he or she might also do a test called a biopsy. For a biopsy, the doctor takes a small sample of the stomach lining. Then another doctor looks at the sample under a microscope. Tests to check for H. pylori infection. These can include: ? Blood tests ? Breath tests These tests measure substances in your breath after you drink a special liquid. ? Tests on a small sample of your bowel movement A barium swallow Your doctor will give you a drink called "barium." Then he or she will take an X-ray as the barium moves through your stomach. Blood tests to check for anemia How is gastritis treated?Treatment depends on what's causing your gastritis. For example, if NSAIDs are causing your gastritis, your doctor will recommend that you not take those medicines. If alcohol is causing your gastritis, he or she will recommend that you stop drinking alcohol. Doctors can use medicines to treat gastritis caused by an H. pylori infection. Most people take 3 ormore medicines for 2 weeks. The treatment includes antibiotics plus medicine that helps the stomach make less acid. Doctors can use medicines that reduce or block stomach acid to treat other causes of gastritis (table 1). The main types of medicines that reduce or block stomach acid are: Antacids Surface agents Histamine blockers Proton pump inhibitors If your doctor recommends acid-reducing treatment, he or she will tell you which medicine to use. What happens after treatment?Sometimes, people who are treated for an H. pylori infection need follow-up tests to make sure the infection is gone. Follow-up tests include breath tests, lab tests on a sample of bowel movement, or endoscopy. All topics are updated as new evidence becomes available and our peer review process is complete. This topic retrieved from [employer] on: Aug 31, 2019. Topic 64608 Version 5.0 Release: 27.4.5 - C27.318 [employer] and/or its affiliates.All rights reserved. figure 1: Upper digestive tract The upper digestive tract includes the esophagus(the tube that connects the mouth to the stomach), the stomach, and the duodenum (the first part of the small intestine). Graphic 79609 Version 6.0 figure 2: Upper endoscopy During an upper endoscopy, you lie down and the doctor puts a thin tube with a camera and light on the end (called an endoscope) into your mouth and down into your esophagus, stomach, and duodenum (thefirst part of your small intestine). The camera sends pictures from inside your body to a televisionscreen. That way , your doctor can see the inside of your esophagus, stomach, and duodenum. Graphic 13498 Version 4.0 table 1: Medicines used to reduce stomach acid Medicine type Medicine name examples Antacids* Calcium carbonate (sample brand names: Maalox, Tums) Aluminum hydroxide, magnesium hydroxide, and simethicone (sample brand name: Mylanta) Surface agents Sucralfate (brand name: Carafate) Histamine blockers Ranitidine (brand name: Zantac) Famotidine (brand name: Pepcid) Cimetidine (brand name: Tagamet) Proton pump inhibitors Omeprazole (brand name: Prilosec) Esomeprazole (brand name: Nexium) Pantoprazole (brand name: Protonix) Lansoprazole (brand name: Prevacid) Dexlansoprazole (brand name: Dexilant) Rabeprazole (brand name: AcipHex) Graphic 42071 Version 12.0 Consumer Information Use and Disclaimer This information is not specific medical advice and does not replace information you receive from your health care provider. This is only a brief summary of general information. It does NOT include allinformation about conditions, illnesses, injuries, tests, procedures, treatments, therapies, discharge instructions or life-style choices that may apply to you. You must talk with your health care provider for complete information about your health and treatment options. This information should not beused to decide whether or not to accept your health care provider's advice, instructions or recommendations. Only your health care provider has the knowledge and training to provide advice that is right for you.The use of [employer] content is governed by the [employer] Terms of Use. 2019 [employer]. All rights reserved. Copyright 2019[employer]. and/or its affiliates.All rights reserved. Author: Rosaline Pyle NP 11/02/2019 15:35 documented in this encounter Plan of Treatment Health Maintenance Due Date Last Done Comments DTaP/Tdap/Td Vaccines (1 - Tdap) 1988 DEPRESSION SCREENING 1989 HIV SCREENING 1992 DIABETES SCREENING 1995 LIPID DISORDER SCREENING 1995 PAP SMEAR 1998 MAMMOGRAM (SCREENING) 2017 INFLUENZA VACCINE (#1) 2019 HEPATITIS A IMMUNIZATION SERIES Aged Out No longer eligible based on patient's age to complete this topic HPV IMMUNIZATION SERIES Aged Out No longer [...] encounter Visit Diagnoses Diagnosis Gastritis and gastroduodenitis Unspecified gastritis and gastroduodenitis without mention of hemorrhage documented in this encounter documented as of this encounter
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
[2019-11-12] MEDS ORDERED: NS 0.9% 1000 ML** 1,000 ML IV ONE (10:02)
[2019-11-12] MEDS ORDERED: Metoclopramide IV* 5 MG/ML 2 ML VIAL IV SLOW PU ONE (10:02)
[2019-11-12] MEDS ORDERED: Ketorolac INJ* 30 MG/ML 1 ML VIAL IV PUSH ONE (10:02)
[2019-11-12] MEDS ORDERED: diPHENhydraMINE IV* 50 MG/ML 1 ml VIAL (BENADRYL) SLOW PUSH ONE (10:02)
[2019-11-12 10:18] LABS: ABS Basophils 0.1 10^3/ul (0-0.2); ABS Monocytes 0.4 10^3/ul (0-0.8); ABS Neutrophils 2.7 10^3/ul (1.5-7.7); Eosinophil % 0.9 %; Hematocrit 40 % (35-47); Hemoglobin 14.2 g/dL (12.0-16.0); Lymphocyte % 24.4 %; Mean Corpuscular HGB Conc 35 g/dL (31-36); Mean Corpuscular Hemoglobin 36 pg (27-31); Mean Corpuscular Volume 101 fL (80-97); Mean Platelet Volume 7.3 fL (7.4-10.4); Nucleated Red Blood Cells % 0.1; Platelet Count 204 10^3/uL (150-450); Red Blood Count 4.01 10^6 /uL (3.70-4.87); Red Cell Distribution Width 12 % (10-15); White Blood Count 4.2 10^3/uL (3.5-10.8)
[2019-11-12 10:24] LABS: INR 0.99 (0.82-1.09)
[2019-11-12 10:37] LABS: Albumin 4.3 g/dL (3.2-5.2); Albumin/Globulin Ratio 1.7 (1-3); BUN/Creatinine Ratio 11.5 (8-20); Calcium 9.6 mg/dL (8.6-10.3); Globulin 2.6 g/dL (2-4); Magnesium 1.8 mg/dL (1.9-2.7); Potassium 4.3 mmol/L (3.5-5.0); Total Bilirubin 0.4 mg/dL (0.2-1.0); Total Protein 6.9 g/dL (6.4-8.9)
[2019-11-12] MEDS ORDERED: Magnesium Sulfate 2 GM IV* 2 GM/50 ML BAG IVPB ONE (12:37)
[2019-11-12] MEDS ORDERED: Dexamethasone IV* 4 MG/ML 1 ML (4 MG) IV SLOW PU ONE (12:37)
[2019-11-12 12:45] LABS: Urine Appearance Clear; Urine Bilirubin Negative (Negative); Urine Blood Negative (Negative); Urine Color Straw; Urine Glucose Negative (Negative); Urine Ketones Negative (Negative); Urine Nitrite Negative (Negative); Urine Protein Negative (Negative); Urine Specific Gravity 1.006 (1.010-1.030); Urine Urobilinogen Negative (Negative)
[2019-11-12 13:15] LABS: Urine Benzodiazepine Screen Presumptive Positive (None Detect); Urine Opiates Screen None Detected (None Detect)
[2019-11-12 14:26] VITALS: BP 119/82
== END 2019-11-12 14:24 | disposition home or self-care (01) ==
LOC: ED 09:38
DX: G43.909 Migraine, unspecified, not intractable, without status migrainosus (principal); R11.0 Nausea; Z79.899 Other long term (current) drug therapy
CPT/HCPCS: 36415; 80053; 80307; 81003; 83605; 83735; 85025; 85610; 96375; 99282; J1100; J1200; J1885; J2765; J3475

== ENCOUNTER 2020-04-14 05:36 | Observation (INO) ==
[2020-04-14] MEDS ORDERED: Piperacillin/Tazobac ADVAN(*) 3.375 GM in NS 0.9% 100 ml BAG 100 ML IVPB ONE (06:22)
[2020-04-14] MEDS ORDERED: Vancomycin(*) 1,250 MG in NS 0.9% 250 ml 250 ML IVPB ONE (07:00)
[2020-04-14 07:05] LABS: Hematocrit 36 % (35-47); Hemoglobin 12.7 g/dL (12.0-16.0); Mean Corpuscular HGB Conc 36 g/dL (31-36); Mean Corpuscular Hemoglobin 36 pg (27-31); Mean Corpuscular Volume 101 fL (80-97); Red Blood Count 3.55 10^6 /uL (3.70-4.87); Red Cell Distribution Width 12 % (10-15); White Blood Count 6.8 10^3/uL (3.5-10.8)
[2020-04-14 07:09] LABS: Activated Partial Thrombo Time 22.5 seconds (26.0-38.0); INR 1.17 (0.82-1.09)
[2020-04-14] MEDS ORDERED: NS 0.9% 100 ml BAG 100 ML ONE (07:17)
[2020-04-14 07:32] LABS: Albumin/Globulin Ratio 1.8 (1-3); BUN/Creatinine Ratio 11.1 (8-20); C Reactive Protein 25.67 mg/L (<8.01); Calcium 8.7 mg/dL (8.6-10.3); EGFR African American 83.1 (>60); EGFR Non-African American 68.7 (>60); Globulin 2.2 g/dL (2-4); Potassium 3.1 mmol/L (3.5-5.0); Total Bilirubin 0.5 mg/dL (0.2-1.0); Total Protein 6.2 g/dL (6.4-8.9)
[2020-04-14] MEDS: NS 0.9% 1000 ml BAG 2,000 ML IV ONE (07:46)
[2020-04-14 08:04] LABS: ABS Lymphocytes 0.2 10^3/ul (1.0-4.8); ABS Monocytes 0.1 10^3/ul (0-0.8); Lymphocyte % 2.4 %; Mean Platelet Volume 8.7 fL (7.4-10.4); Platelet Count 158 10^3/uL (150-450)
[2020-04-14 08:05] LABS: Influenza A Molecular Negative (Negative); Influenza B Molecular Negative (Negative)
[2020-04-14] MEDS ORDERED: fentaNYL 100 mcg/2 ml 50 MCG/ML VIAL IV SLOW PU ONE ×2 (09:07→10:04)
[2020-04-14 10:43] LABS: Urine Appearance Cloudy; Urine Bilirubin Negative (Negative); Urine Blood 3+ (Negative); Urine Color Yellow; Urine Glucose Negative (Negative); Urine Ketones Negative (Negative); Urine Nitrite Positive (Negative); Urine Protein 1+(30 mg/dL) (Negative); Urine Specific Gravity 1.006 (1.010-1.030); Urine Urobilinogen Negative (Negative)
[2020-04-14 10:50] LABS: Urine Bacteria 1+ (Absent); Urine Red Blood Cell 3+(>10/hpf) (Absent); Urine Squamous Epithelial Cell Present (Absent); Urine White Blood Cell 3+(>20/hpf) (Absent)
[2020-04-14] MEDS ORDERED: Al Hydrox/Mg Hydrox/Simet LIQ 30 ML UDC PO PRN (11:42)
[2020-04-14] MEDS ORDERED: Senna TAB 8.6 mg TAB PO PRN (11:42)
[2020-04-14] MEDS ORDERED: Diazepam 5 mg TAB (*) PO PRN (11:48)
[2020-04-14] MEDS ORDERED: cefTRIAXone 1 gm/50 mL NS BAG 1 GM/50 ML BAG IVPB SCH (14:00)
[2020-04-14] MEDS: Enoxaparin 40 MG/0.4 ML SYR(*) SUBCUT SCH (14:11)
[2020-04-14] MEDS: NS 0.9% 1000 ml BAG 1,000 ML IV SCH (14:12)
[2020-04-14] MEDS: KCL 20 MEQ/100 ML IVPREMIX 20 MEQ/100 ML BAG IV SCH ×4 (14:53→22:17)
[2020-04-15] MEDS: NS 0.9% 1000 ml BAG 1,000 ML IV SCH ×2 (00:30→10:39)
[2020-04-15 05:25] LABS: ABS Lymphocytes 0.6 10^3/ul (1.0-4.8); ABS Monocytes 0.2 10^3/ul (0-0.8); Eosinophil % 0.3 %; Hematocrit 32 % (35-47); Hemoglobin 11.7 g/dL (12.0-16.0); Lymphocyte % 22.4 %; Mean Corpuscular HGB Conc 36 g/dL (31-36); Mean Corpuscular Hemoglobin 36 pg (27-31); Mean Corpuscular Volume 100 fL (80-97); Mean Platelet Volume 8.2 fL (7.4-10.4); Nucleated Red Blood Cells % 0.1; Platelet Count 120 10^3/uL (150-450); Red Blood Count 3.23 10^6 /uL (3.70-4.87); Red Cell Distribution Width 12 % (10-15); White Blood Count 2.5 10^3/uL (3.5-10.8)
[2020-04-15 05:44] LABS: BUN/Creatinine Ratio 6.3 (8-20); EGFR African American 125.4 (>60); EGFR Non-African American 103.6 (>60); Potassium 3.5 mmol/L (3.5-5.0)
[2020-04-15] MEDS ORDERED: Venlafaxine XR 75 mg PO SCH (09:00)
[2020-04-15] MEDS: Enoxaparin 40 MG/0.4 ML SYR(*) SUBCUT SCH (11:19)
[2020-04-15 11:35] VITALS: BP 105/63
== END 2020-04-15 13:00 | disposition home or self-care (01) ==
LOC: MED 05:36 → ED 05:36 → MED 13:15
PROVIDERS: ADMIT Hospitalist; ATTEND Hospitalist